=== PATIENT | male | born 1990 | race Hispanic/Latino ===

== ENCOUNTER 2024-09-05 21:19 | Emergency (ER) | payer SELFPAY ==
[~2024-09-05] VITALS: Ht 167.6 cm; Wt 113.4 kg
[2024-09-05 21:47] LABS: RAPID GROUP A STREP positive (NEGATIVE)
[2024-09-05 21:49] LABS: SARS-CoV-2, RNA, NAAT NEGATIVE SARS CoV-2 (NEGATIVE)
[2024-09-05 21:55] LABS: INFLUENZA TYPE A Negative For Type A (NEGATIVE); INFLUENZA TYPE B Negative For Type B (NEGATIVE)
[2024-09-05] MEDS: dexaMETHasone SOD PHOSPHATE 4 MG/ML 1ML VIAL IV ONE (21:58)
[2024-09-05] MEDS: ketOROlac 60 MG VIAL (30MG/ML) IM ONE (21:59)
[2024-09-05] MEDS ORDERED: AZIT500T4 PO (22:11)
[2024-09-05] MEDS: AZITHROMYCIN 250 MG TABLET PO ONE (22:25)
[2024-09-05 22:38] VITALS: BP 131/80; PULSE 90; RESP 18; TEMP 98; O2SAT 97
== END 2024-09-05 22:45 | disposition home or self-care (01) ==
LOC: EDH 21:19
DX: J02.0 Streptococcal pharyngitis (principal); Z20.822 Contact with and (suspected) exposure to COVID-19
CPT/HCPCS: 99284; 96374; 87635; 87880; 87804 ×2; 96372; J1100; J1885

== ENCOUNTER 2025-04-07 22:48 | Emergency (ER) | payer SELFPAY ==
[~2025-04-07] VITALS: Ht 167.6 cm; Wt 109.8 kg
[~2025-04-07 22:48] MED LIST: AZIT500T4 PO
[2025-04-07 23:23] LABS: SARS-CoV-2, RNA, NAAT NEGATIVE SARS CoV-2 (NEGATIVE)
[2025-04-07] MEDS: IpraTROPium/alBUTERol SULFATE 3 ML SOLUTION IH ONE (23:28)
[2025-04-07 23:29] VITALS: PULSE 83; RESP 18
[2025-04-07] MEDS ORDERED: IpraTROPium/alBUTERol SULFATE 3 ML SOLUTION IH ONE (23:30)
[2025-04-07 23:31] LABS: INFLUENZA TYPE A Negative For Type A (NEGATIVE); INFLUENZA TYPE B Negative For Type B (NEGATIVE)
[2025-04-07] MEDS: Solu-medROL 125MG VIAL IM ONE (23:42)
[2025-04-07] MEDS: acetaMINOPHEN 500 MG TABLET PO ONE (23:42)
[2025-04-08] MEDS ORDERED: ALBUHFA IH (00:18)
[2025-04-08] MEDS ORDERED: AZIT250T PO (00:18)
--- NOTE | 2025-04-08 00:18 | ERN ---
ED Note History of Present Illness Stated Complaint: C/O COUGH,PHLEGM,CONGESTION X 3 WKS Chief Complaint: Cough Time Seen by MD: 22:54 Time Seen by Midlevel: 22:54 Dictation: The patient is a 34 Year old male with no significant past medical history who presents to the emergency department with complaints of productive cough for 2-3 weeks. Patient denies any fevers, denies any runny nose or ear pain. Allergies: Coded Allergies: No Known Allergies (Unverified Allergy, Unknown, 09/05/24) Penicillins (Unverified Allergy, Unknown, 09/05/24) Home Meds Active Scripts Azithromycin (Azithromycin) 500 Mg Tablet, 1 TAB PO DAILY for 5 Days, #5 TAB 0 Refills Prov:EMILE EDWARDS MD 09/05/24 Past Medical History Past Medical History: No Pertinent History Surgical History: Other Surgical History Other: KNEE SX RN Note Reviewed/Agreed w/PFSH: Yes Review of System Dictation Constitutional: Negative for fever,chills, and weight loss Eyes: Negative for injury, pain,redness, and discharge ENT: Negative for injury,pain or swelling Cardiovascular: Negative for chest pain, palpitations, and edema Respiratory: Negative for shortness of breath, and wheezing, positive for cough Abdomen/GI: Negative for abdominal pain, nausea, vomiting, diarrhea, and constipation Back: Negative for injury and pain : Negative for injury, bleeding and discharge MS/Extremity: Negative for injury and deformity Skin: Negative for rash, and discoloration Neuro: Negative for headache, weakness, numbness, tingling, and seizure Psych: Negative for suicide ideation, homicidal ideation, and hallucinations Initial Vital Sign VS Vital Signs Date Time Temp Pulse Resp B/P (MAP) Pulse Ox O2 Delivery O2 Flow Rate FiO2 04/07/25 22:50 98.2 77 20 128/72 97 Room Air Physical Exam Dictation Vital Signs reviewed General Appearance: Alert, oriented x 3, no acute distress, well developed, nourished. Head and Face: non-traumatic. Eyes: PERRL, pink conjunctivas, eyelid no trauma, anterior chamber with arcus senilis. Ears: Pinnas intact and no signs of trauma or erythema ear canals clear and no discharge TM no erythema Nose: No discharge, no bleeding. Oropharynx: Mouth normal, tongue pink. pharynx clear,no erythema, tonsils no exudates, no abscesses noted, mucous membrane moist Neck: Supple, non-tender, no thyromegaly, no masses, no JVD, no bruits Breast:Deferred Chest:No tenderness, no crepitus, no paradoxical movement, no retractions Lungs:Clear, well-ventilated, symmetric, no rales, no wheezing, no rhonchi, no stridor, good breath sounds bilaterally Heart: Regular rate, regular rhythm, no murmur, no gallops Vascular: no peripheral edema, Abdomen: Soft, positive bowel sounds, nondistended, no guarding, nontender, no rebound, no masses no hepatomegaly, no splenomegaly, no Liu's sign, no hernias. Rectal: Deferred Genital: Deferred Neurological: Normal speech, motor function intact, sensory function intact Musculoskeletal: Neck nontender, full range of motion, back nontender, full range of motion, Extremities: nontender, full range of motion Skin: Color pink, dry, no turgor, no rash, no lacerations, no abrasions, no contusions. Lymphatic: Deferred Results (Laboratory/Radiology) Laboratory/Radiology Laboratory Tests Test 04/07/25 22:56 Influenza Type A Antigen Negative For Type A Influenza Type B Antigen Negative For Type B SARS-CoV-2, RNA, NAAT NEGATIVE SARS CoV-2 Labs Reviewed?: Yes ED Course ED Course Orders Procedure Category Date Status Time Covid Rna Naat LAB 04/07/25 Complete 22:58 Influenza Type A & B, LAB 04/07/25 Complete Rapid 22:58 Chest 1vw RAD 04/07/25 Taken 23:01 Ipratropium/Albuterol PHA 04/07/25 Complete Neb (Duoneb) 23:30 Methylprednisolone PHA 04/07/25 Complete Succ 125mg (Solu-Medr 23:30 Acetaminophen 500mg PHA 04/07/25 Complete Tab (Tylenol 500mg T 23:30 Ipratropium/Albuterol PHA 04/07/25 Complete Neb (Duoneb) 23:03 Current Medications Medications (Trade) Dose Ordered Sig/Victor M Route PRN Reason Start Time Stop Time Status Last Admin Dose Admin Acetaminophen (TYLenol 500MG TAB) 1,000 mg ONCE ONCE PO 04/07/25 23:30 04/07/25 23:31 DC 04/07/25 23:42 Albuterol (DUOneb) 1 UDVIAL ONCE ONCE IH 04/07/25 23:30 04/07/25 23:31 DC Albuterol (DUOneb) 1 udvial STK-MED ONCE IH 04/07/25 23:03 04/07/25 23:04 DC 04/07/25 23:28 Methylprednisolone Sodium Succinate (Solu-medROL 125MG) 125 mg ONCE ONCE IM 04/07/25 23:30 04/07/25 23:31 DC 04/07/25 23:42 Vital Signs Date Time Temp Pulse Resp B/P (MAP) Pulse Ox O2 Delivery O2 Flow Rate FiO2 04/07/25 23:29 83 18 04/07/25 22:50 98.2 77 20 128/72 97 Room Air Medical Decision Making MDM The patient is a 34 Year old male with no significant past medical history who presents to the emergency department with complaints of productive cough for 2-3 weeks. Patient denies any fevers, denies any runny nose or ear pain. Serology negative. Patient has x-ray showed mild infiltrates. Patient will be treated with antibiotics as outpatient. Patient was giving DuoNeb. Patient in no acute distress, stable vital signs, clear lung sounds. Discharge planning discussed with the patient who agrees to be discharged. Differential diagnosis: Pneumonia, pneumonitis, upper respiratory infection, pneumothorax Need for hospitalization: Patient does not meet criteria for hospitalization. There are no social concerns with this patient. DX & DISP Disposition: Discharge Departure Impression: Primary Impression: Pneumonitis Additional Impression: Cough Condition: Stable Scripts Albuterol Sulfate (Ventolin Hfa/Proventil Hfa/Proair Hfa) 90 Mcg Puff 1-2 PUFF IH Q4H PRN for SHORTNESS OF BREATH for 5 Days, #1 INH 0 Refills PHARMACY TO DISPENSE 1 INHALER FOR USE Prov: CLAUDIA EDWARDS 04/08/25 Azithromycin (Zithromax) 250 Mg Tablet 250 MG PO AD for 5 Days, #6 TAB Take 2 250 mg tablets on day 1, then take 1 250mg tablets daily for 4 days Prov: CLAUDIA EDWARDS COMPOSITE TECHNICIAN 04/08/25 Additional Instructions: Is follow up with your primary doctor in 1-2 days. Take your medications as prescribed. If symptoms worsen please return ER. FOLLOW-UP WITH PRIMARY CARE PROVIDER IN 1 TO 2 DAYS. TAKE MEDICATIONS DIRECTED HERE IN THE EMERGENCY ROOM. OKAY TO CONTINUE HOME MEDICATIONS UNLESS OTHERWISE DISCUSSED DURING YOUR VISIT IN THE EMERGENCY ROOM TODAY. RETURN TO YOUR NEAREST EMERGENCY ROOM IF SYMPTOMS WORSEN OR IF THERE IS NO IMPROVEMENT. CALL 911 IF YOU NEED IMMEDIATE ASSISTANCE. TAKE TYLENOL OR MOTRIN [id number] NEEDED AND IF NO CONTRAINDICATIONS ARE PRESENT. INCREASE ORAL HYDRATION. A WOUND CULTURE OR URINE CULTURE WAS ORDERED HERE IN THE EMERGENCY ROOM DEPARTMENT PLEASE FOLLOW-UP WITH PRIMARY CARE PROVIDER AND ADVISE THEM TO GET REPEAT PORTS FROM OUR FACILITY. IF YOU HAD ANY KYRA WRAP/SPLINTS THAT WERE APPLIED HERE, PLEASE DO NOT REMOVE THEM UNTIL YOU SEE YOUR PRIMARY CARE OR SPECIALTY. Referrals: SELF,REFERRAL (PCP) Time of Disposition: 00:17 I have reviewed the case, and I agree with, Diagnosis and Plan CLAUDIA EDWARDS [facility] Apr 08, 2025 00:18
[2025-04-08 00:33] VITALS: BP 151/81; PULSE 88; RESP 17; TEMP 98.1; O2SAT 96
--- NOTE | 2025-04-08 08:23 | HMCIMG ---
Exam Type: CHEST 1VW Clinical Information: cough Comparison: None Findings: The lungs are clear of infiltrates. The heart is normal in size. The bony and soft tissue structures of the chest are unremarkable. Impression: Clear lungs.
== END 2025-04-08 00:45 | disposition home or self-care (01) ==
LOC: EDH 22:48
DX: J18.9 Pneumonia, unspecified organism (principal); R05.9 Cough, unspecified; Z88.0 Allergy status to penicillin; Z20.822 Contact with and (suspected) exposure to COVID-19
CPT/HCPCS: 99284; 71045; 87635; 87804 ×2; 96372; 94640; J2919